=== PATIENT | female | born 1980 | race Caucasian/White ===

== ENCOUNTER 2020-06-15 16:40 | Emergency (ER) | payer OTHER ==
[2020-06-15] MEDS ORDERED: Ondansetron 4 MG Tab.DIS PO ONE (16:41)
[2020-06-15] MEDS ORDERED: Acetaminophen/oxyCODONE 325-5 MG Tab PO ONE (16:41)
[2020-06-15] MEDS ORDERED: Ondansetron 4 MG/2 ML SDV IVPUSH ONE (17:13)
[2020-06-15] MEDS ORDERED: Sodium Chloride 0.9% 1,000 ML IV ONE ×2 (17:13→17:15)
[2020-06-15] MEDS ORDERED: HYDROmorphone 2 MG/ML SDV IVPUSH ONE ×2 (17:13→18:19)
--- NOTE | 2020-06-15 17:21 | EDM.PDOC ---
ED HPI GENERAL MEDICAL PROBLEM - General Stated Complaint: ABD PAIN Time Seen by Provider: 06/15/20 17:05 Source of Information: Reports: Patient History Limitations: Reports: No Limitations - History of Present Illness INITIAL COMMENTS - FREE TEXT/NARRATIVE: c/o RUQ pain pt with RUQ pain x 24h has had n/v saw Dr Evangelista and u/a with 40 mg/dl ketones and SG >1.030, dip neg for infection, CBC neg, he sent pt here for CT only prior abd surgery was umbilical hernia repair 11/24 Meds x 3: rizatriptan 10 mg prn, takes 1-2x/wk, venlafaxine 225 mg qd for anxiety, atorvastatin PMH includes migraines, anxiety, hyperlipidemia PSH includes umb hernia repair took no meds in past 24h for current sxs no f/c/d, no cough little to eat or drink inc'd pain when sitting, pain at RUQ and radiates to back altho 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, 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 RIght lower abdominal Pain Score (Numeric/FACES): 8 - Related Data Allergies Allergy/AdvReac Type Severity Reaction Status Date / Time No Known Allergies Allergy Verified 06/15/20 18:28 Home Meds: Home Meds Ondansetron [Ondansetron ODT] 4 mg PO Q6H PRN #8 tab.rapdis 06/15/20 [Rx] Rizatriptan Benzoate [Rizatriptan] 10 mg PO ASDIRECTED PRN 06/15/20 [History] Venlafaxine HCl [Venlafaxine ER] 75 mg PO DAILY 06/15/20 [History] atorvaSTATin [Lipitor] 20 mg PO DAILY 06/15/20 [History] ED ROS GENERAL - Review of Systems Review Of Systems: See Below Constitutional: Reports: No Symptoms HEENT: Reports: No Symptoms Respiratory: Reports: No Symptoms Cardiovascular: Reports: No Symptoms Endocrine: Reports: No Symptoms GI/Abdominal: Reports: Abdominal Pain, Nausea, Vomiting : Reports: No Symptoms Musculoskeletal: Reports: No Symptoms Skin: Reports: No Symptoms Neurological: Reports: No Symptoms Psychiatric: Reports: No Symptoms Hematologic/Lymphatic: Reports: No Symptoms Immunologic: Reports: No Symptoms ED EXAM, GI/ABD - Physical Exam Exam: See Below Exam Limited By: No Limitations General Appearance: Alert, WD/WN, No Apparent Distress Head: Atraumatic, Normocephalic Neck: Normal Inspection, Supple, Non-Tender Respiratory/Chest: No Respiratory Distress, Lungs Clear, Normal Breath Sounds, Chest Non-Tender Cardiovascular: Regular Rate, Rhythm, No Edema, No Murmur GI/Abdominal Exam: Normal Bowel Sounds, Soft, Other (1+ tender at [place]az's point on initial exam, later was also tender in R mid abd in R MCL, no CVAT, no back or spine tender, no epigastric tender) Back Exam: Normal Inspection, Full Range of Motion. No: CVA Tenderness (R), CVA Tenderness (L) Extremities: Normal Range of Motion, Non-Tender, No Pedal Edema Neurological: Alert, Oriented, CN II-XII Intact, Normal Cognition, No Motor/Sensory Deficits Psychiatric: Normal Affect, Normal Mood Skin Exam: Warm, Dry, Intact, Normal Color, No Rash Lymphatic: No Adenopathy Course - Vital Signs Last Recorded V/S: Last Vital Signs Temp 36.8 C 06/15/20 16:40 Pulse 80 06/15/20 16:40 Resp 18 06/15/20 16:40 BP 114/52 L 06/15/20 16:40 Pulse Ox 100 06/15/20 16:40 - Orders/Labs/Meds Orders: Active Orders 24 hr Category Date Time Status Abdomen Pelvis w Cont [CT] Stat Exams 06/15/20 17:16 Ordered Labs: Laboratory Tests 06/15/20 06/15/20 06/15/20 Range/Units 17:25 17:25 17:25 Sodium 139 (135-145) mmol/L Potassium 4.2 (3.5-5.3) mmol/L Chloride 101 (100-110) mmol/L Carbon Dioxide 29 (21-32) mmol/L BUN 21 H (7-18) mg/dL Creatinine 1.0 (0.55-1.02) mg/dL Est Cr Clr Drug Dosing TNP Estimated GFR (MDRD) > 60 (>60) BUN/Creatinine Ratio 21.0 H (9-20) Glucose 90 (80-116) mg/dL Calcium 8.8 (8.6-10.2) mg/dL Total Bilirubin 0.4 (0.1-1.3) mg/dL AST 13 (5-25) IU/L ALT 17 (12-36) U/L Alkaline Phosphatase 49 L (56-112) IU/L Troponin I < 4.0 L (4.0-60.3) pg/mL C-Reactive Protein < 0.2 L (0.5-0.9) mg/dL Total Protein 7.4 (6.0-8.0) g/dL Albumin 4.0 (3.5-5.2) g/dL Globulin 3.4 g/dL Albumin/Globulin Ratio 1.2 Lipase 83 (73-393) U/L HCG, Quant < 5 L (<5) mIU/mL Meds: Medications Discontinued Medications Generic Name Dose Route Start Last Admin Trade Name Freq PRN Reason Stop Dose Admin Hydromorphone HCl 0.5 mg 06/15/20 17:13 06/15/20 17:34 Dilaudid IVPUSH 06/15/20 17:14 0.5 mg ONETIME ONE Administration Hydromorphone HCl 0.5 mg 06/15/20 18:19 06/15/20 18:24 Dilaudid IVPUSH 06/15/20 18:20 0.5 mg ONETIME ONE Administration Sodium Chloride 1,000 mls @ 999 mls/hr 06/15/20 17:13 06/15/20 17:35 Normal Saline IV 06/15/20 18:13 999 mls/hr .BOLUS ONE Administration Sodium Chloride 1,000 mls @ 999 mls/hr 06/15/20 17:15 06/15/20 18:46 Normal Saline IV 06/15/20 18:15 999 mls/hr .BOLUS ONE Administration Iopamidol 100 ml 06/15/20 17:37 06/15/20 18:06 Isovue-370 (76%) IV 06/15/20 17:38 100 ml . DIRECTED ONE Administration Ketorolac Tromethamine 30 mg 06/15/20 18:46 06/15/20 18:59 Toradol IVPUSH 06/15/20 18:47 30 mg ONETIME ONE Administration Ondansetron HCl 4 mg 06/15/20 17:13 06/15/20 17:34 Zofran IVPUSH 06/15/20 17:14 4 mg ONETIME ONE Administration - Re-Assessments/Exams Free Text/Narrative Re-Assessment/Exam: 06/15/20 19:30 CT abd/pelvis with IV contrast shows a 1.7 cm R ovarian cyst, tenderness is primarily in the RUQ under the ribs, however she has some tenderness in the R mid abdomen as well in the MCL which would be c/w 1.7 cm cyst LMP 07-08-20, for 4d, light had an ablation for heavy menses, now has regular light menses pt given Dilaudid 0.5 mg IV x 2 and Toradol 30 mg IV x 1, felt better after each med 06/15/20 20:04 pt states she is from [place], 1[place]h from here and her pharmacy is not open tomorrow, send home with oxy/apap 5/325 #4 and ondansetron 4 mg SL #4 Departure - Departure Time of Disposition: 19:55 Disposition: Home, Self-Care 01 Condition: Good Clinical Impression: Right ovarian cyst, Nausea and vomiting, Moderate dehydration - Discharge Information *PRESCRIPTION DRUG MONITORING PROGRAM REVIEWED*: Not Applicable *COPY OF PRESCRIPTION DRUG MONITORING REPORT IN PATIENT GAURAV: Not Applicable Prescriptions: Ondansetron [Ondansetron ODT] 4 mg PO Q6H PRN #8 tab.rapdis PRN Reason: Nausea Instructions: Rehydration, Adult, Ovarian Cyst Referrals: PCP,None [Primary Care Provider] - Forms: ED Department Discharge Additional Instructions: For nausea, take ondansetron 4 mg under the tongue every 6 hours as needed. For pain, take ibuprofen 200 mg 3 tabs 4 times a day for several days. For pain, take acetaminophen 325 mg 2 tabs 4 times a day for several days. Take together with the ibuprofen. For pain, as needed, may also take oxycodone/acetaminophen 5/325 mg 1 tab every 6 hours as needed. No alcohol. Use moist heat in shower or tub for 10 minutes every hour as needed. Increase fluids. Solid food is less important. See Dr vEangelista in 3-4 days for further recommendations. Sepsis Event Note (ED) - Focused Exam Vital Signs: Vital Signs Temp Pulse Resp BP Pulse Ox 06/15/20 16:40 36.8 C 80 18 114/52 L 100 - My Orders Last 24 Hours: My Active Orders 06/15/20 17:16 Abdomen Pelvis w Cont [CT] Stat - Assessment/Plan Last 24 Hours: My Active Orders 06/15/20 17:16 Abdomen Pelvis w Cont [CT] Stat
[2020-06-15] MEDS ORDERED: Iopamidol 755 Mg/ML 100 ML Bottle IV ONE (17:37)
[2020-06-15] MEDS ORDERED: Ketorolac 30 MG/ML SDV IVPUSH ONE (18:46)
== END 2020-06-15 20:15 | disposition home or self-care (01) ==
LOC: FB.ED 16:40
DX: N83.201 Unspecified ovarian cyst, right side (principal); E86.0 Dehydration; R11.2 Nausea with vomiting, unspecified; F41.9 Anxiety disorder, unspecified; E78.5 Hyperlipidemia, unspecified; Z79.899 Other long term (current) drug therapy
CPT/HCPCS: 36415; 74177; 80053; 83690; 84484; 84702; 86140; 96361; 96374; 96375; 96376; 99284; A9270; J1170; J1885; J2405; J7030; Q9967